=== PATIENT | male | born 1950 | race Caucasian/White ===

== ENCOUNTER 2025-03-19 16:13 | Observation (INO) | payer OTHER, SELFPAY ==
[2025-03-19] VITALS (14 sets, daily range): BP systolic 148–203; BP diastolic 75–159; BMI 30.2; BMI 29.1
--- NOTE | 2025-03-19 10:42 | ED.GENMED ---
History of Present Illness
General
Chief Complaint: Blood Pressure Problem
Source: patient
Exam Limitations: none
Time Seen by Provider: 03/19/25 10:40
Nursing documentation reviewed up to this point in time: agreed with
History of Present Illness
History of Present Illness:
Note:
CHIEF COMPLAINT(S)
Dizziness and blurry vision.
HISTORY OF PRESENT ILLNESS
The patient is a 74-year-old male who presented with dizziness and blurred vision over the last couple of days. He reports experiencing lightheadedness and was found to have hypotension. The patient has a history of cardiac issues and hypertension.
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
[place].
PAST MEDICAL AND SURIGICAL HISTORY
The patient has a relevant past medical history that includes:
- Hypertension
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
ADDITIONAL HISTORY OBTAINED FROM SOURCES OTHER THAN THE PATIENT
A report from EMS students noted the patients recent history of dizziness and lightheadedness associated with hypotension.
ALLERGIES
The patient reports allergies, but specific medications were not mentioned.
SOCIAL HISTORY
The patient smokes, but the specific type of smoking product and cessation timeline is not provided.
MEDICATIONS
The patient is currently taking the following medications:
- Metoprolol
- Amlodipine
- Rosuvastatin
- Bictegravir/emtricitabine/tenofovir alafenamide (Biktarvy)
- Prevagen
REVIEW OF SYSTEMS
- Cardiovascular: Reports of dizziness and hypotension.
- Neurological: Dizziness, blurry vision. History of vision disturbance in the right eye (described as 'lazy eye').
- Eyes: Blurry vision noted during the episode.
PHYSICAL EXAM
General: Alert, no acute distress.
Skin: Warm, dry.
Head: Normocephalic, atraumatic.
Neck: Supple, trachea midline.
Eye Ears, nose, mouth and throat: Oral mucosa moist. Noted visual focus and coordination issue consistent with previous history of 'lazy eye.'
Cardiovascular: Normal peripheral perfusion, No edema.
Respiratory: Respirations are non-labored.
Gastrointestinal: Abdomen nondistended.
Back: Normal range of motion, Normal alignment.
Musculoskeletal: Normal ROM, normal strength.
Neurological: Alert and oriented to person, place, time, and situation, No focal neurological deficit observed.
Psychiatric: Cooperative, appropriate mood & affect.
PROBLEM LIST
Acute Problems:
- Dizziness
- Blurry vision
Chronic Problems:
- Hypertension
- Cardiac aneurysm with history of surgical intervention
PLAN
1. Patient will undergo a CT scan of the head to evaluate for any acute changes.
2. Blood tests will be conducted to investigate any underlying causes for the symptoms.
3. Monitor blood pressure and adjust medications as needed.
4. Reassess and consider consulting with a neurologist or local delivery driver if symptoms persist.
DIFFERENTIAL DIAGNOSIS
The Differential Diagnosis includes, in no particular order and is not limited to:
1. Postural hypotension
2. Vestibular dysfunction
3. Transient ischemic attack (TIA)
4. Cardiac arrhythmia
5. Benign paroxysmal positional vertigo (BPPV)
6. Hypertensive crisis with ocular involvement
7. Medication side effects
8. Early stroke
9. Labyrinthitis
10. Menieres disease
CARE-UPDATE
03/19/25 - 15:49
Recommend admitting the patient to the hospitalist team for further evaluation due to likely TIA and hypertensive urgency. Neurology consultation advises obtaining an echocardiogram and an MRI to further investigate the condition.
Disposition:
SUMMARY OF ENCOUNTER
The patient is a 74-year-old male who presented with dizziness and blurred vision over the last couple of days. He was found to have hypotension upon examination, although his blood pressure improved with observation. The patient has a history of
cardiovascular issues, and the presenting symptoms raised the possibility of a transient ischemic attack (TIA) or giant cell arteritis. In the emergency department, his neurologic exam did not reveal any deficits.
DISPOSITION
Admit to hospitalist team for further evaluation.
ASSESSMENT
The patient is suspected of having a TIA versus giant cell arteritis.
MANAGEMENT OF THE PATIENTS CARE WAS DISCUSSED WITH
Consultation with neurology was conducted, and they recommended obtaining an echocardiogram, ESR, CRP, and MRI for further evaluation.
PLAN
Pending admission, obtain echocardiogram, ESR, CRP, and MRI as recommended by neurology. Monitor blood pressure and evaluate for any changes in neurological status.
MEDICAL DECISION MAKING
-Complexity of Data Reviewed: Chronic conditions affecting care include hypertension and a cardiac aneurysm with a history of surgical intervention. Considered diagnoses include postural hypotension, vestibular dysfunction, TIA, cardiac arrhythmia,
benign paroxysmal positional vertigo (BPPV), hypertensive crisis with ocular involvement, medication side effects, early stroke, labyrinthitis, and Menieres disease.
-Data:
Category 1
Clinical information was obtained from an independent historian: The EMS students noted the patients recent history of dizziness and lightheadedness associated with hypotension.
Category 3
Discussion of management with other physician: Neurology consultation advised the echocardiogram, ESR, CRP, and MRI.
DIAGNOSIS
- Suspected Transient Ischemic Attack (TIA) (G45.9)
- Possible Giant Cell Arteritis (M31.6)
Phy Exam
Physical Exam
Physical Exam:
.
Course
Orders/Labs/Results
Orders:
Orders
03/19/25 10:40
Electrocardiogram (*1) Stat
Reason for Study: Other
Other Reason for Exam: neuro symptoms
CT Head & Neck Angio W/wo IV Urgent
Comment:
Reason For Exam: right eye visual changes
Cardiac Monitoring- Treatment ONCE
EKG- Treatment ONCE
IV Insert/Care/Rem.- Treatment PRN
Pulse Ox/cont/shift [RESP] Stat
Quantity: 1
03/19/25 10:47
C-Reactive Protein Urgent
Comment: ADD ON
Complete Blood Count/With Diff Urgent
Comprehensive Metabolic Panel Urgent
Erythrocyte Sed Rate Urgent
Comment: ADD ON
TSH Reflex To Free T4 Urgent
Comment: ADD ON
03/19/25 14:29
Add On- LAB Urgent
Tests Added?: esr, crp
03/19/25 15:39
Add On- LAB Urgent
Tests Added?: TSH w/Reflex
Abnormal Lab Results
03/19/25
10:47
MCV 100.2 H fL
(80.0-94.0)
MCH 33.5 H pg
(27.0-31.0)
Plt Count 91 L 10^3/uL
(130-400)
Absolute Monos (auto) 0.8 H 10^3/uL
(0.1-0.6)
Glucose 109 H mg/dl
(70-99)
03/19/25 10:47
03/19/25 10:47
Vital Signs
Initial and Last Documented VS:
Initial Vital Signs
Temp Pulse Resp BP Pulse Ox
98.7 F 51 18 203/107 98
03/19/25 10:36 03/19/25 10:36 03/19/25 10:36 03/19/25 10:36 03/19/25 10:36
Last Documented Vital Signs
Temp Pulse Resp BP Pulse Ox
98.7 F 50 19 161/89 97
03/19/25 10:36 03/19/25 15:15 03/19/25 15:15 03/19/25 13:15 03/19/25 15:15
*Pulse Oximetry
SaO2: 98
Oxygen Mode of Delivery: Room air
Patient hypoxic: no
*Critical Care Note
Total Time (30-74mins, 75-104mins- exclusive of procedures): Not Applicable
ED Attending Note
-
Portions of this chart may have been created with voice recognition software.� Occasional wrong word or��sound alike� substitutions may have occurred due to the inherent limitations of voice recognition software.
Discharge Plan
Departure
Patient Disposition: Admit
Date of Disposition: 03/19/25
Time of Disposition: 15:08
Admit to: Telemetry
Presentation/result/management discussed w/ accepting MD/DO: Hospitalist
Patient with high blood pressure during this ER visit?: Yes
Condition: Good
Discharge Problem:
TIA (transient ischemic attack), Transient visual loss of right eye
Prescriptions:
No Action
Biktarvy 50-200-25 mg Tablet
1 tab PO HS
hydralazine 25 mg Tablet
25 mg PO BIDPRN PRN (Reason: high blood pressure)
amlodipine [Norvasc] 10 mg Tablet
10 mg PO QPM
losartan 100 mg Tablet
100 mg PO QPM
rosuvastatin [Crestor] 40 mg Tablet
40 mg PO QPM
Metoprolol tablet
200 mg PO DAILY
Patient Comments:
no pharamcy fills
Referrals:
NONE,* [Family Provider, Internal Medicine]
Interventions
Interventions:
*Risk Screen - Suicide Last Done: 03/19/25 10:41
*General Assessment Last Done: 03/19/25 10:41
*Neglect/Abuse Screening Last Done: 03/19/25 10:41
*ED COVID-19 Vaccine History Last Done: 03/19/25 10:41
*ED Influenza Vaccine History Last Done: 03/19/25 10:41
ED- Cardiac Assessment Last Done: 03/19/25 11:06
ED- Neurological Assessment Last Done: 03/19/25 11:06
ED- Pulmonary Assessment Last Done: 03/19/25 11:06
Discharge Date and Time
Print Language: TAMAZIGHT
[2025-03-19 11:15] LABS: ALT (SGPT) 19 U/L (0-50); AST (SGOT) 24 U/L (17-59); Albumin 4.0 g/dl (3.5-5.0); Alkaline Phosphatase 87 U/L (38-126); Blood Urea Nitrogen 15 mg/dl (9-20); Calcium 9.3 mg/dl (8.4-10.2); Carbon Dioxide 30 mmol/L (22-30); Chloride 107 mmol/L (98-107); Estimated Creatinine Clearance 64 ml/min; Glucose 109 mg/dl (70-99); Potassium 4.2 mmol/L (3.5-5.1); Sodium 140 mmol/L (135-145); Total Protein 6.5 g/dl (6.3-8.2); eGFR > 60.00
[2025-03-19 11:29] LABS: Hematocrit 49.4 % (39.0-52.0); Hemoglobin 16.5 g/dL (13.0-18.0); Mean Corp Hgb Conc. 33.4 g/dL (33.0-37.0); Mean Corpuscular Volume 100.2 fL (80.0-94.0); Nucleated Red Blood Cells % 0 % (-); Red Cell Dist. Width 13.6 % (11.5-14.5)
[2025-03-19 12:26] LABS: Platelet Count 91 10^3/uL (130-400)
--- NOTE | 2025-03-19 15:17 | W.PN.UPDATE ---
Addendum entered and electronically signed by Austin Altamirano MD 03/19/25 15:59:
CORRECTION:
HTN urgency
Uncontrols HTN
- he took extra Hydralazine
- spontaneously improved
- NEG H& N CTA
- IV Hydralazine if SBP > 180 <del>220</del> , DBP > 110
- c/w PRE SCHOOL MANAGER Metoprolol ( lower dose due to SB) Amlodipine , Losartan
Original Note:
Update Note
Progress Note Update
This note serves as an addendum to the H&P by [employer] field supervisor Sharon SHERWOOD
HPI
74M R hand dominant HX HIV, HTN, HLD, Aorta stent sen at ER:
- patient called EMS due to hi BP not responding to Rx Medications
- At ER BP 203/107 then spontaneously improved to 160/89
- reports transient right side visual loss
- NEG H & N CTA for acute pathology,no evidence for high-grade intracranial stenosis/large vessel occlusion.
- Per ER attd d/w Neurologist
PHX
Aorta stents
HTN
HLD
POS HIV for 30 yrs
Relevant VS
03/19/25
10:36
Temp 98.7 F
Temp route: Oral
Pulse 51
Resp Rate 18
Blood pressure 203/107
SaO2 98
Temp Pulse Resp BP Pulse Ox
98.7 F 49 14 161/89 97
03/19/25 10:36 03/19/25 14:30 03/19/25 14:30 03/19/25 13:15 03/19/25 14:30
PE
Gen: NAD
HEENT: JANAY, symmetric face , nl speech
Neck: supple
Lungs: CTA
Cor: RRR S1 S2
Abdomen:�soft NT NG
SOLE ROUGHER: AAO3 , NFND
MS: No edema
Psych:n mood and affect
Relevant Data
03/19/25
10:47
WBC 8.1
Hgb 16.5
MCV 100.2 H
Plt Count 91 L
ESR Pending
Creatinine 1.1
eGFR > 60.00
Glucose 109 H
EKG
SINUS BRADYCARDIA
OTHERWISE NORMAL ECG
NO PREVIOUS ECGS AVAILABLE
Confirmed by Poppy BARRON ERIC ([id number]) on 03/19/2025 2:18:[address] Head & Neck Angio W/wo IV
- No evidence of acute intracranial abnormality.
- Mild opacification of the left mastoid air cells, most likely benign trapped fluid.
- Calcific atherosclerotic disease. No evidence for hemodynamically significant stenosis of the common carotid arteries, carotid bulbs, or proximal internal carotid arteries bilaterally.
- No evidence for high-grade intracranial stenosis/large vessel occlusion.
- No significant narrowing involving the vertebral or basilar arteries. No significant narrowing of the posterior cerebral arteries.
- There is no CT angiographic evidence for intracranial aneurysm.
Percent stenosis is calculated using NASCET criteria.
If the patient has emphysema, patient should be assessed for an annual low dose lung cancer CT program, as pulmonary emphysema is an independent risk factor for lung cancer.
NO PRIOR hospitalist admission: just moved to [facility] . Pending to establish primary health care
ASSESSMENT & PLAN
Transient Rt side visual loss
DDX : Ischemic ( transient monocular ischemia) due to embolic vs. vascular ( HTN arterial spasm, post circulation TIA) vs Ocular or Retinal hemorrhage
- primary event HTN crisis vs secondary due transient R sided loss vision
- NEG H & N CTA
- ECHO
- Brain MRI
- Neuro consulted by ER pineda
HTN urgency
Uncontrols HTN days ?
- he took extra Hydralazine
- spontaneously improved
- NEG H& N CTA
- IV Hydralazine if SBP > 220 , DBP > 110
HX HIV for 30 yrs
- last CD4
- reported immuno- reconstituted
- tolerating Biktarvy
DVT Px: SCD
Full code
OBS TLM
--- NOTE | 2025-03-19 15:41 | HPS.HSE ---
Family Physician
-
Family Physician: * NONE
Chief Complaint
-
Elevated Blood Pressure and Visual Disturbance
History of Present Illness
Patient is a 74 y/o male past medical history of hypertension, hyperlipidemia, thoracic aortic aneurysm and HIV who presents with elevated blood pressure and visual disturbance. Patient reports he recently failed a visual test as he could not see
anything to his right. He notes symptoms seem to be transient and he had a second episode last night. He reports this morning he took his blood and it was very elevated with SBP greater than 230. He took his as needed hydralazine and then
presented to the emergency department for evaluation. He denies any headaches or eye pain. He denies any similar episodes in the past.
Medical History
Past Medical History
Past Medical History: Reports Other
Additional Past Medical History:
Thoracic Aortic Aneurysm s/p Stent
Peripheral Neuropathy
Essential Hypertension
Hyperlipidemia
HIV
BPH
Past Surgical History: Reports Other
Additional Past Surgical History:
Aneurysm Stent
Social History
Tobacco: Smoker (05/25 PPD)
Alcohol: Occasional
Family History
Family History: Not pertinent
Allergies / Home Medications
Allergies reflects when Allergies were last updated in [employer].
Home Medications with original date entered in [employer]
Allergy/Medication List:
Allergies
Allergy/AdvReac Type Severity Reaction Status Date / Time
shellfish derived Allergy Unknown Verified 03/19/25 10:36
Home Medications
Metoprolol 200 mg PO DAILY Blood Pressure 03/19/25
amlodipine 10 mg tablet (Norvasc) 10 mg PO QPM Blood Pressure 03/19/25
bictegravir 50 mg-emtricitabine 200 mg-tenofovir alafenam 25 mg tablet (Biktarvy) 1 tab PO HS 03/19/25
hydralazine 25 mg tablet 25 mg PO BIDPRN PRN high blood pressure 03/19/25
losartan 100 mg tablet 100 mg PO QPM Blood Pressure 03/19/25
rosuvastatin 40 mg tablet (Crestor) 40 mg PO QPM High Cholesterol 03/19/25
Review of Systems
-
A 12 point ROS was completed and negative except as noted: Yes
Constitutional: Denies Fever
Respiratory: Denies Cough or Trouble Breathing
Cardiac: Denies Chest Pain or Palpitations
Physical Exam
Vital Signs
Vital Signs
Temp Pulse Resp BP Pulse Ox
98.7 F 50 19 161/89 97
03/19/25 10:36 03/19/25 15:15 03/19/25 15:15 03/19/25 13:15 03/19/25 15:15
Physical Exam
General: Comfortable and Conversant
HEENT: Anicteric and Moist mucous membranes
Respiratory: Clear and Non Labored Respirations
Cardiac: S1/S2, Regular Rhythm and Bradycardia
GI: Soft and Non Tender
Musculoskeletal: No Clubbing, No Cyanosis and No Edema
Skin: Warm and Dry
Neuro: Awake, Alert, Oriented and No Motor Deficits; No Slurred Speech or Facial Droop
Psych: Calm
Laboratory Results
-
03/19/25 10:47
03/19/25 10:47
Laboratory Results
Total Bilirubin 1.3 mg/dl (0.2-1.3) 03/19/25 10:47
AST 24 U/L (17-59) 03/19/25 10:47
ALT 19 U/L (0-50) 03/19/25 10:47
Alkaline Phosphatase 87 U/L (38-126) 03/19/25 10:47
Data Reviewed
-
CT Scan: Report Reviewed by me
Lab Data: Labs Reviewed by me
Impression/Plan
-
Transient Visual Disturbance, possible TIA vs Hypertensive Encephalopathy
-Consult Neurology
-Check Brain MRI
-Start Aspirin
Uncontrolled Hypertension
-Continue amlodipine and losartan
-Decrease metoprolol succinate from 200mg to 100mg Daily
-Add hydralazine PRN
Hyperlipidemia
-Continue rosuvastatin
HIV, patient reports undetectable viral load
-Continue Biktarvy
DVT proph: SCDs
Code Status: Full Code
[2025-03-19 16:00] LABS: C-Reactive Protein < 5.00 mg/L (0.0-10.00)
--- NOTE | 2025-03-19 18:00 | TRANSFER ---
Pt arrives from ED. ambulated to recliner chair independently. daughter present with pt. pt getting settled in, water pipe installer being applied, pt being oriented to unit.
[2025-03-19] MEDS: TOPROL XL PO (18:22)
[2025-03-19] MEDS: NORVASC 10 MG PO (20:07)
[2025-03-19] MEDS: COZAAR 100 MG PO (20:08)
[2025-03-19] MEDS: VALIUM INJECTION IV (20:29)
[2025-03-19] MEDS: VALIUM INJECTION 2 MG IV (20:46)
[2025-03-19] MEDS: BIKTARVY 50-200-25 MG TABLET 1 TABLET PO (21:38)
[2025-03-20 03:23] VITALS: BP 131/62
[2025-03-20 07:11] LABS: Hematocrit 47.1 % (39.0-52.0); Hemoglobin 16.6 g/dL (13.0-18.0); Mean Corp Hgb Conc. 35.2 g/dL (33.0-37.0); Mean Corpuscular Volume 94.8 fL (80.0-94.0); Platelet Count 91 10^3/uL (130-400); Red Cell Dist. Width 13.3 % (11.5-14.5)
[2025-03-20 07:16] LABS: Blood Urea Nitrogen 15 mg/dl (9-20); Calcium 9.1 mg/dl (8.4-10.2); Carbon Dioxide 25 mmol/L (22-30); Chloride 109 mmol/L (98-107); Estimated Creatinine Clearance 63 ml/min; Glucose 96 mg/dl (70-99); HDL Cholesterol 39 mg/dl; LDL Cholesterol, Calculated 100 mg/dl; Magnesium 2.0 mg/dl (1.6-2.3); Potassium 3.8 mmol/L (3.5-5.1); Sodium 135 mmol/L (135-145); Very Low Density Lipoprotein 28 mg/dl (0-30); eGFR > 60.00
[2025-03-20 07:17] VITALS: BP 157/83
--- NOTE | 2025-03-20 07:42 | VATNOTE ---
Right arm median cubital antecubital IV site appears bruised. IV flushed easily with 3ml NSS No swelling noted. No complaints.
--- NOTE | 2025-03-20 08:20 | CON.NEURO4 ---
Addendum entered and electronically signed by Josue Meza MD 03/20/25 22:18:
I have seen and examined the patient today on 03/20/2025. I have also discussed the patient's assessment and the management plan with nurse practitioner Rachel Kennedy. I agree with the nurse practitioner Rachel Kennedy's note below. Given
below is my addendum.
The patient is a 74 years old male who presented to the hospital with transient vision loss in the right visual field on 03/16/2025. The visual disturbance lasted for about 15 minutes and then it resolved completely. The patient had a similar
episode on 03/18/2025. The patient checked his blood pressure yesterday morning and the systolic blood pressure was around 230 and that made him come to the ER for evaluation.
The MRI of the brain did not show an acute infarct or intracranial hemorrhage.
The CTA of head and neck did not show a large vessel occlusion.
Neurologic Examination:
The patient is alert and oriented x 3,
Speech is clear,
The cranial nerves II to XII are grossly intact and the visual dumas were grossly intact,
The motor strength is grossly 5/5 bilaterally in the upper and lower extremities,
The sensations are grossly intact,
The cerebellar examination did not show limb ataxia.
ASSESSMENT AND PLAN:
The patient had a transient right-sided visual field deficit that lasted for about 15 minutes and then he returned to his baseline. He does not appear to have an acute infarct however a transient ischemic attack cannot be ruled out.
Recommend a Holter monitor upon discharge to rule out cardiac arrhythmia.
Transthoracic echo is pending.
Continue DAPT with aspirin 81mg daily and clopidogrel 75mg daily for 21 days. After 21 days, discontinue clopidogrel and continue aspirin 81mg daily monotherapy.
Continue home rosuvastatin.
Refer to ophthalmology for a formal visual field examination.
Follow-up with the neurology as an outpatient.
Original Note:
Consultation - Neurology 4
-
CONSULTING PHYSICIAN: Josue Meza MD
REFERRING PHYSICIAN: Hospitalists/Ines Yen
DICTATED BY: STEPHANIE Baer
DATE/TIME OF REQUEST: 03/19/25
DATE/TIME OF CONSULTATION: 03/20/25
Reason for Consultation: Visual disturbance
History of Present Illness:
This is a 74-year-old male who has presented to the hospital with report of right-sided transient vision loss. Patient reports that four days ago on 03/16/25 he was at the [facility] doing the vision assessment and he wasn't able to see six numbers on the
right side of the screen. His right-sided visual disturbance lasted for about 15 minutes before completely resolving. He reports having a second episode of right-sided vision loss two nights ago on 03/18/25 lasting about the same duration. He
checked his blood pressure yesterday morning (03/19/25) and reports his systolic was around 230, prompting him to come to the ER for evaluation. CTA head/neck were obtained on arrival and are negative for any acute abnormalities. NIHSS was 0 on
arrival. He was not a candidate for TNK/IAT due to being outside of the time window and no LVO. Currently (03/20/25), he reports feeling at his baseline. He reports having a mild headache. He denies any dizziness, vision changes, speech/swallow
difficulty, numbness, and weakness. He is not taking any blood-thinning medications. He also notes that he has been having severe nocturnal leg cramping lately, he was wondering if this is due to his neuropathy worsening.
Past Medical History: HTN, HLD, HIV, peripheral neuropathy, right lazy eye, thoracic aortic aneurysm
Surgical History: Thoracic aortic aneurysm stent
Family History: Reviewed and noncontributory.
Social History: Current 1/2 PPD smoker. Occasional alcohol. Denies illicit drug use.
Allergies: Shellfish derived.
Home Medications: See below.
Review of Symptoms:
Patient denies any fever, chest pain, shortness of breath, GI or symptoms.
�Per the HPI.�All systems are reviewed negative except above.
Physical Exam:
The patient is afebrile, abdomen is nondistended, breathing is unlabored, skin is warm and dry, no edema.
NIH Stroke Scale:
I performed the NIH stroke scale on the patient on 03/20/25 at 0945. The patient scored 0 points on the NIH stroke scale assessment, which were assigned as follows: See below.
Neurologic Examination:
The patient is awake, alert and oriented x 3. He is able to follow commands and answer questions appropriately. There is no aphasia or dysarthria. On cranial nerve assessment, pupils are 3 mm bilateral, round and reactive to light and
accommodation. Visual dumas are full. Extraocular movements are intact. R eye 1+ exotropia, reports chronic lazy eye. Facial sensations are intact and bilaterally symmetrical, there is no facial asymmetry. Hearing is intact bilaterally to normal
conversation volume. Tongue palate and uvula are midline. Sternocleidomastoid strengths are full bilaterally. Motor strengths are 5/5 bilateral upper and lower extremities on medical research [place] scale. There is no drift or involuntary movement
noted. Sensation of touch is reduced in distal bilateral upper and lower extremities. There was no extinction noted on double simultaneous stimulation. Coordination is intact by finger to nose bilaterally.
Lab Results: See below.
Neuro Imaging:
1. CTA Head/Neck 03/19/25: No evidence of acute intracranial abnormality. Mild opacification of the left mastoid air cells, most likely benign trapped fluid. Calcific atherosclerotic disease. No evidence for hemodynamically significant stenosis of
the common carotid arteries, carotid bulbs, or proximal internal carotid arteries bilaterally.
No evidence for high-grade intracranial stenosis/large vessel occlusion. No significant narrowing involving the vertebral or basilar arteries. No significant narrowing of the posterior cerebral arteries. There is no CT angiographic evidence for
intracranial aneurysm.
2. MRI brain 03/19/25: No MRI evidence for acute infarct or intracranial hemorrhage. Mild white matter leukoaraiosis in the frontal and parietal lobes. Mild to moderate diffuse cerebral and cerebellar volume loss. Severe tortuosity of the
intracranial vertebral and basilar arteries. Large amount of fluid in the left mastoid air cells. Severe discogenic degenerative disease and facet joint arthrosis in the cervical spine. Mild spinal cord compression and central canal stenosis at
C3/C4.
Differentials for the patient's presentation include:
1. Transient right-sided vision loss; MRI brain is negative for stroke. Possible etiologies for symptoms include transient ischemic attack versus hypertensive emergency.
Patient has the following risk factors for their symptoms: uncontrolled HTN, HLD
IV Tenecteplase/IAT candidacy: He was not a candidate for TNK/IAT due to being outside of the time window and no LVO.
Recommendations:
-Continue DAPT with aspirin 81mg and clopidogrel 75mg daily for 21 days. After 21 days, discontinue clopidogrel and continue aspirin 81mg monotherapy.
-Slow lowering of blood pressure to goal normotension since symptom onset was greater than 24 hours ago.
-TTE pending. Recommend Holter monitor upon discharge to evaluate for cardiac arrhythmia.
-LDL goal <70. LDL is 100. Continue home rosuvastatin 40mg. Adding ezetimibe 10mg daily as LDL is not at goal on maximum statin dosing.
-Goal normoglycemia, hbA1c is 5.2.
-NIHSS and neurological checks per unit guidelines.
-Provide patient with a stroke education packet.
-Would follow-up with ophthalmology as an outpatient.
-Checking blood work for metabolic abnormalities, especially ferritin level given report of nocturnal leg cramping.
-DVT prophylaxis.
-Follow-up with Neurology as an outpatient.
Discussed patient care with: Dr. Meza, the patient
Vital Signs and Labs
-
Vital Signs and Labs:
Vital Signs
Temp Pulse Resp BP Pulse Ox
97.9 F 55 18 157/83 95
03/20/25 07:17 03/20/25 07:17 03/20/25 07:17 03/20/25 07:17 03/20/25 07:17
Lab Results
03/20/25 06:02
03/20/25 06:02
Sodium 135 mmol/L (135-145) 03/20/25 06:02
Potassium 3.8 mmol/L (3.5-5.1) 03/20/25 06:02
BUN 15 mg/dl (9-20) 03/20/25 06:02
Glucose 96 mg/dl (70-99) 03/20/25 06:02
Calcium 9.1 mg/dl (8.4-10.2) 03/20/25 06:02
LDL Cholesterol, Calc 100 mg/dl 03/20/25 06:02
Medications
-
Active Medications
Generic Name Dose Route Start Last Admin
Trade Name Freq PRN Reason Stop Dose Admin
Acetaminophen 650 mg 03/19/25 18:00 03/20/25 08:21
Acetaminophen 325 Mg Tablet PO 04/16/25 17:59 650 mg
Q4HPRN PRN Administration
mild pain/ fever>100.5F
Amlodipine Besylate 10 mg 03/19/25 18:00 03/19/25 20:07
Amlodipine 10 Mg Tablet PO 04/16/25 17:59 10 mg
QPM LUIS Administration
Aspirin 81 mg 03/20/25 08:00 03/20/25 08:21
Aspirin 81 Mg Chewable Tablet PO 04/17/25 07:59 81 mg
DAILY LUIS Administration
Bictegravir/Emtricitabine/Tenofovir 1 tablet 03/19/25 22:00 03/19/25 21:38
Biktarvy (Bictegravir/Emtricitabine/Tenofovir) Tablet PO 04/16/25 21:59 1 tablet
HS LUIS Administration
Clopidogrel Bisulfate 75 mg 03/20/25 09:00 03/20/25 08:33
Clopidogrel 75 Mg Tablet PO 04/09/25 08:01 75 mg
DAILY LUIS Administration
Hydralazine HCl 10 mg 03/19/25 18:00
Hydralazine 20 Mg/Ml Vial IV 04/16/25 17:59
Q6HPRN PRN
SBP>180 or DBP>110
Losartan Potassium 100 mg 03/19/25 18:00 03/19/25 20:08
Losartan 100 Mg Tablet PO 04/16/25 17:59 100 mg
QPM LUIS Administration
Metoprolol Succinate 100 mg 03/19/25 18:00 03/19/25 18:22
Metoprolol 100 Mg Extended Release Tablet PO 04/16/25 17:59 Not Given
QPM LUIS
Nicotine 7 mg 03/20/25 08:00 03/20/25 08:21
Nicotine 7 Mg Patch TRANSDERM 04/17/25 07:59 7 mg
DAILY LUIS Administration
Rosuvastatin Calcium 40 mg 03/20/25 18:00
Rosuvastatin (Crestor) 20 Mg Tablet PO 04/17/25 17:59
QPM LUIS
Home Medications
�Medication �Instructions �Recorded
Metoprolol 200 mg PO DAILY Blood Pressure 03/19/25
amlodipine 10 mg tablet (Norvasc) 10 mg PO QPM Blood Pressure 03/19/25
bictegravir 50 mg-emtricitabine 1 tab PO HS HIV 03/19/25
200 mg-tenofovir alafenam 25 mg
tablet (Biktarvy)
hydralazine 25 mg tablet 25 mg PO BIDPRN PRN high blood 03/19/25
pressure
losartan 100 mg tablet 100 mg PO QPM Blood Pressure 03/19/25
rosuvastatin 40 mg tablet (Crestor) 40 mg PO QPM High Cholesterol 03/19/25
NIH Stroke Score
Subsequent NIH Scale
Date of Subsequent NIH Scale: 03/20/25
Time of Subsequent NIH Scale: 09:45
NIH Stroke Score
Level of Consciousness: 0 - Alert
LOC Questions: 0-Answers both correctly
LOC Commands: 0-Performs both correctly
Best Horizontal Gaze: 0-Normal
Visual Dumas: 0=Normal, no visual loss
Facial Palsy: 0=Normal, symmetrical
Motor - Right Arm: 0=No drift 10 seconds
Motor - Left Arm: 0=No drift 10 seconds
Motor - Right Le-No drift 5 seconds
Motor - Left Le-No drift 5 seconds
Limb Ataxia: 0-Absent
Sensation: 0-Normal
Best Language: 0-No aphasia
Dysarthria: 0-Normal
Extinction and Inattention: 0-No abnormality
NIH Total Score:: 0
Modified Alfredito (mRS) Score
Modified Alfred[place] Scale (mRS): No symptoms
Score: 0
Alteplase Contraindication
Inclusion and Exclusion criteria reviewed: Yes
Reasons for NON-Tx with Thrombolytics ABSOLUTE Exclusions: Greater than 4.5 hrs from onset of sxs
IAT Contraindications: Imaging doesn't show large vessel occlusion as cause of stroke
[2025-03-20] MEDS: LOW STRENGTH ASPIRIN 81 MG PO (08:21)
[2025-03-20] MEDS: NICODERM TRANSDERMAL 7 MG TRANSDERM (08:21)
[2025-03-20] MEDS: TYLENOL 650 MG PO (08:21)
[2025-03-20] MEDS: PLAVIX 75 MG PO (08:33)
[2025-03-20 09:04] LABS: Glycohemoglobin (HgbA1c) 5.2 % (4.0-5.9)
[2025-03-20 11:04] VITALS: BP 155/87
--- NOTE | 2025-03-20 12:01 | CM ---
Patient seen at bedside on . Patient states that his partner in august and he moved to be closer to his son. Patient concerned about bills, information provided about [email or web address] information, as well as information on PCP for residency
clinic. CM will continue to follow for discharge planning needs.
Plan; home with VN vs home with no needs.
[2025-03-20 13:49] LABS: Ferritin 258.0 ng/ml (17.9-464.0)
[2025-03-20 14:20] LABS: Folate 5.2 ng/ml (2.76-20); Vitamin B12 389 pg/ml (239-931)
--- NOTE | 2025-03-20 16:28 | W.DS.TRANS ---
Addendum entered and electronically signed by Victor M Jackson MD 03/20/25 16:36:
Toprol XL reduced to 100mg daily
Original Note:
DC Summary - [facility]
-
Discharge Instructions:
Discharge Diagnosis/Procedures TIA
Hypertensive urgency
Diet Low Cholesterol
Instructions:
Stand-Alone Forms:
Changes to Home Medications: Yes
Discharge Medications:
DC Medications w/original date entered in [employer]
Metoprolol 200 mg PO DAILY Blood Pressure 03/19/25
amlodipine 10 mg tablet (Norvasc) 10 mg PO QPM Blood Pressure 03/19/25
bictegravir 50 mg-emtricitabine 200 mg-tenofovir alafenam 25 mg tablet (Biktarvy) 1 tab PO HS HIV 03/19/25
hydralazine 25 mg tablet 25 mg PO BIDPRN PRN high blood pressure 03/19/25
losartan 100 mg tablet 100 mg PO QPM Blood Pressure 03/19/25
rosuvastatin 40 mg tablet (Crestor) 40 mg PO QPM High Cholesterol 03/19/25
aspirin 81 mg chewable tablet 81 mg PO DAILY #30 tabs 03/20/25
clopidogrel 75 mg tablet 75 mg PO DAILY #21 tabs 03/20/25
ezetimibe 10 mg tablet 10 mg PO HS #30 tabs 03/20/25
nicotine 7 mg/24 hr daily transdermal patch 7 mg transdermal DAILY #30 ea 03/20/25
pantoprazole 20 mg tablet,delayed release (Protonix) 20 mg PO DAILY #30 tabs 03/20/25
Home Medication Changes
Zetia, DAPT, with PPI, Nicotine patch
Pending Results: Yes
Additional Pending Results:
Renin activity with ARR.
[2025-03-20] MEDS: NORVASC 10 MG PO (17:02)
[2025-03-20] MEDS: TOPROL XL 100 MG PO (17:03)
[2025-03-20] MEDS: COZAAR 100 MG PO (17:03)
[2025-03-20] MEDS: CRESTOR 40 MG PO (17:04)
[2025-03-23 08:10] LABS: Renin Activity Results <0.1 ng/mL/hr
== END 2025-03-20 17:35 | disposition home or self-care (01) ==
LOC: 2 NORTH 16:13
PROVIDERS: Physician Assistant Medical; ADMITTING PHYSICIAN Internal Medicine; ATTENDING PHYSICIAN Internal Medicine; CONSULT PHYSICIAN Psychiatry & Neurology Neurology; EMERGENCY PHYSICIAN Emergency Medicine
DX: G45.9 Transient cerebral ischemic attack, unspecified (principal); I16.1 Hypertensive emergency; R42 Dizziness and giddiness; H53.8 Other visual disturbances; I95.9 Hypotension, unspecified; I10 Essential (primary) hypertension; H54.61 Unqualified visual loss, right eye, normal vision left eye; H53.121 Transient visual loss, right eye; J43.9 Emphysema, unspecified; E78.5 Hyperlipidemia, unspecified; G62.9 Polyneuropathy, unspecified; N40.0 Benign prostatic hyperplasia without lower urinary tract symptoms; H53.40 Unspecified visual field defects; F17.210 Nicotine dependence, cigarettes, uncomplicated; R00.1 Bradycardia, unspecified; I70.0 Atherosclerosis of aorta; I08.0 Rheumatic disorders of both mitral and aortic valves; M50.01 Cervical disc disorder with myelopathy, high cervical region; M48.02 Spinal stenosis, cervical region; M47.812 Spondylosis without myelopathy or radiculopathy, cervical region; Z60.2 Problems related to living alone; Z79.899 Other long term (current) drug therapy; Z86.79 Personal history of other diseases of the circulatory system; Z21 Asymptomatic human immunodeficiency virus [HIV] infection status; Z91.013 Allergy to seafood; Z79.624 Long term (current) use of inhibitors of nucleotide synthesis; Z95.818 Presence of other cardiac implants and grafts
CPT/HCPCS: 70496; 70498; 70551; 71046; 80048; 80053; 80061; 82088; 82607; 82728; 82746; 83036; 83735; 84244; 84443; 85025; 85027; 85652; 86140; 87070; 93005; 93306; 99285; G0378; Q9967